=== PATIENT | female | born 1970 | race Caucasian/White ===

== ENCOUNTER → 2020-08-02 | Outpatient (CLI) | payer OTHER ==
[~2020-08-02] MED LIST: ADDERALL 10 MG10 MG PO; FISH OIL 1,001000 M1 PO; FLEXERIL PO; LEXAPRO 10 MG T10 M1 PO; MIRENA; PREDNISONE 10 M10 MG PO; SENOKOT-S1 TA1 PO
== END ==
LOC: M.MRI 16:51
DX: M25.441 Effusion, right hand (principal); G89.29 Other chronic pain; R60.0 Localized edema; M65.841 Other synovitis and tenosynovitis, right hand